=== PATIENT | male | born 1930 | race Caucasian/White ===

== ENCOUNTER → 2017-11-11 | Outpatient (CLI) | payer MEDICARE, OTHER ==
[~2017-11-11] MED LIST: FINA5TAB4 PO; FLUD0.1T PO; MULT1TAB13 PO; SILO4CAP PO; TIMO1DRO LEFTEYE; VITAMIN C PO; VITAMIN D PO
[2017-11-11 11:01] LABS: MICROSCOPIC NOT IND
== END | disposition home or self-care (01) ==
LOC: STAR 10:03
PROVIDERS: ATTEND Urology
DX: Z01.818 Encounter for other preprocedural examination (principal); N40.1 Benign prostatic hyperplasia with lower urinary tract symptoms
CPT/HCPCS: 71046; 81003; 87086; 93005

== ENCOUNTER 2017-11-16 11:34 | Day surgery (SDC) | payer MEDICARE, OTHER ==
[2017-11-11 10:54] VITALS: BP 165/104
[~2017-11-16] VITALS: Ht 180.3 cm; Wt 97.5 kg
[2017-11-16] MEDS ORDERED: LACTATED RINGERS 1,000 ML IV SCH (12:40)
[2017-11-16] MEDS ORDERED: MIDAZOLAM 1 MG/ML, 2ML ONE (13:09)
[2017-11-16] MEDS ORDERED: FENTANYL PF 100 MCG/2ML ONE (13:09)
[2017-11-16] MEDS ORDERED: LIDOCAINE-MPF 2% ,5ML ONE (13:10)
[2017-11-16] MEDS ORDERED: PROPOFOL 10 MG/ML, 20ML ONE (13:10)
[2017-11-16] MEDS ORDERED: CIPROFLOXACIN/PMX 400MG/200ML 200 ML ONE (13:11)
[2017-11-16] MEDS ORDERED: ONDANSETRON ODT 8 MG ONE ×2 (13:38)
[2017-11-16] MEDS ORDERED: DEXAMETHASONE 4 MG/ML, 1ML ONE (14:13)
[2017-11-16] MEDS ORDERED: LABETALOL 5MG/ML, 20ML IV PRN (14:30)
[2017-11-16] MEDS ORDERED: FENTANYL PF 100 MCG/2ML IV PRN (14:30)
[2017-11-16] MEDS ORDERED: PROMETHAZINE 25 MG/ML, 1ML IV PRN (14:30)
[2017-11-16] MEDS ORDERED: hydrALAzine 20 MG/ML, 1ML IV PRN (14:30)
[2017-11-16] MEDS ORDERED: HALOPERIDOL 5 MG/ML IV PRN (14:30)
[2017-11-16] MEDS ORDERED: ACETAMINOPHEN 325 MG TABLET PO PRN (14:30)
[2017-11-16] MEDS ORDERED: OXYcodone 5 MG/5 ML ORAL.SOL UDC PO PRN (14:30)
[2017-11-16] MEDS ORDERED: MEPERIDINE/PF 25MG/0.5ML IVPush PRN (14:30)
[2017-11-16] MEDS ORDERED: HYDROmorphone 1 MG/ML, 1ML IV PRN (14:30)
[2017-11-16] MEDS ORDERED: OXYcodone/APAP 5/325MG TABLET PO PRN (15:00)
[2017-11-16] MEDS ORDERED: ONDANSETRON 2MG/ML, 2ML IV PRN (15:00)
== END 2017-11-16 16:35 ==
LOC: OUT 11:34
PROVIDERS: ATTEND Urology
DX: N40.0 Benign prostatic hyperplasia without lower urinary tract symptoms (principal); I10 Essential (primary) hypertension
CPT/HCPCS: 52648; J0744; J1100; J2250; J2704; J3010; J3490; J7120; Q0162

== ENCOUNTER 2018-10-14 08:56 | Inpatient (IN) | payer MEDICARE ==
[~2018-10-14] VITALS: Ht 181.6 cm; Wt 101.8 kg
[~2018-10-14 08:56] MED LIST changes: +APIX2.5T PO; +ATOR40TA78 PO; +FURO40TA6 PO; +MIDO2.5T PO
[2018-10-14] MEDS ORDERED: METO5TAB5 PO (09:53)
[2018-10-14] MEDS ORDERED: CHOL100011 PO (09:57)
[2018-10-14 10:00] VITALS: BP 116/87
[2018-10-14] MEDS ORDERED: SODIUM CHLORIDE 0.9% 1,000 ML IV ONE (10:00)
[2018-10-14 10:13] LABS: ANION GAP 8 mmol/L (5-15); CALCIUM 8.7 mg/dL (8.5-10.1); CHLORIDE 105 mmol/L (98-107); CREATININE 2.68 mg/dL (0.7-1.3)
[2018-10-14] MEDS ORDERED: PROPOFOL 10 MG/ML, 20ML ONE (10:33)
[2018-10-14] MEDS ORDERED: NITROGLYCERIN 0.4 MG BOTTLE (25 TABS) SL PRN (16:00)
[2018-10-14] MEDS ORDERED: ONDANSETRON 2MG/ML, 2ML IVP PRN (16:00)
[2018-10-14] MEDS ORDERED: ACETAMINOPHEN 650 MG/20.3 ML UDC PO PRN (16:00)
[2018-10-14] MEDS ORDERED: BISACODYL 5 MG EC TABLET PO PRN (16:00)
[2018-10-14] MEDS ORDERED: NITROGLYCERIN 0.4 MG/SPRAY SL PRN (16:00)
[2018-10-14 19:22] VITALS: BP 114/73
[2018-10-15 01:43] VITALS: BP 105/67
[2018-10-15 05:48] LABS: ANION GAP 8 mmol/L (5-15); CALCIUM 8.5 mg/dL (8.5-10.1); CHLORIDE 105 mmol/L (98-107); CREATININE 3.06 mg/dL (0.7-1.3)
[2018-10-15] MEDS ORDERED: SODIUM CHLORIDE 0.9% 1,000 ML IV SCH (06:58)
[2018-10-15] MEDS ORDERED: CEFAZOLIN PMX 1GM/50ML 50 ML IVPB ONE (07:00)
[2018-10-15 08:45] VITALS: BP 108/72
[2018-10-15] MEDS ORDERED: MIDAZOLAM 1 MG/ML, 5ML ONE (13:58)
[2018-10-15] MEDS ORDERED: CEFAZOLIN 1,000 MG ONE (13:58)
[2018-10-15] MEDS ORDERED: LIDOCAINE 2%, 20ML ONE (13:58)
[2018-10-15] MEDS ORDERED: CEFAZOLIN PMX 1GM/50ML 50 ML ONE (13:58)
[2018-10-15] MEDS ORDERED: FENTANYL PF 100 MCG/2ML ONE (13:58)
[2018-10-15] MEDS ORDERED: LIDOCAINE 1%, 20ML ONE (15:26)
[2018-10-15 16:15] VITALS: BP 119/74
[2018-10-15] MEDS ORDERED: HOLD MEDICATION MC PRN (16:30)
[2018-10-15 19:38] VITALS: BP 113/76
[2018-10-15] MEDS: SODIUM CHLORIDE FLUSH 10ML SYR IVF SCH (22:53)
[2018-10-15] MEDS: CEFAZOLIN PMX 1GM/50ML 50 ML IVPB SCH (22:53)
[2018-10-15] MEDS ORDERED: ACETAMINOPHEN 325 MG TABLET PO PRN (23:00)
[2018-10-16 00:37] VITALS: BP 104/64
[2018-10-16 05:01] LABS: BASOPHILS # (AUTO) 0.06 x10^3/uL (0-0.1); BASOPHILS % (AUTO) 1 % (0-1); EOSINOPHILS # (AUTO) 0.41 x10^3/uL (0-0.4); EOSINOPHILS % (AUTO) 5 % (1-7); LYMPHOCYTES # (AUTO) 1.61 x10^3/uL (1-3.4); LYMPHOCYTES % (AUTO) 18 % (22-44); MD NO; MEAN CORPUSCULAR HEMOGLOBIN 32.2 pg (27.5-34.5); MEAN CORPUSCULAR HGB CONC 32.7 g/dL (33.2-36.2); MEAN CORPUSCULAR VOLUME 98.3 fL (81-97); MEAN PLATELET VOLUME 7.8 fL (7.4-10.4); MONOCYTES # (AUTO) 0.87 x10^3/uL (0.2-0.8); MONOCYTES % (AUTO) 10 % (2-9); NEUTROPHILS # (AUTO) 6.05 x10^3/uL (1.8-6.8); NEUTROPHILS % (AUTO) 67 % (42-75); PLATELET COUNT 229 x10^3/uL (130-400); RED BLOOD COUNT 2.94 x10^6/uL (4.38-5.82); RED CELL DISTRIBUTION WIDTH 12.6 % (9.4-14.8)
[2018-10-16 05:12] LABS: ALBUMIN 3.3 g/dL (3.4-5.0); ANION GAP 9 mmol/L (5-15); CALCIUM 8.5 mg/dL (8.5-10.1); CHLORIDE 107 mmol/L (98-107)
[2018-10-16 05:16] LABS: ALANINE AMINOTRANSFERASE 13 U/L (12-78); ALKALINE PHOSPHATASE 70 U/L (45-117); CREATININE 3.28 mg/dL (0.7-1.3); TOTAL PROTEIN 6.8 g/dL (6.4-8.2)
[2018-10-16] MEDS: CEFAZOLIN PMX 1GM/50ML 50 ML IVPB SCH (06:26)
[2018-10-16] MEDS ORDERED: SODIUM CHLORIDE 0.9% 500 ML IV SCH (06:58)
[2018-10-16 07:33] VITALS: BP 111/76
[2018-10-16] MEDS: SODIUM CHLORIDE FLUSH 10ML SYR IVF SCH ×2 (08:20→20:31)
[2018-10-16] MEDS ORDERED: LACTATED RINGERS 1,000 ML IV SCH (08:30)
[2018-10-16 08:34] LABS: MICROSCOPIC AUTO
[2018-10-16 08:38] LABS: CULTURE INDICATED? YES
[2018-10-16 13:30] VITALS: BP 136/80
[2018-10-16 19:07] VITALS: BP 103/67
[2018-10-16] MEDS: APIXABAN 2.5 MG TABLET PO SCH (20:30)
[2018-10-17 01:22] VITALS: BP 102/67
[2018-10-17 04:28] LABS: ANION GAP 9 mmol/L (5-15); CALCIUM 8.4 mg/dL (8.5-10.1); CHLORIDE 105 mmol/L (98-107); CREATININE 3.09 mg/dL (0.7-1.3)
[2018-10-17 07:21] VITALS: BP 110/71
[2018-10-17] MEDS: SODIUM CHLORIDE FLUSH 10ML SYR IVF SCH (09:00)
[2018-10-17] MEDS: APIXABAN 2.5 MG TABLET PO SCH (09:07)
[2018-10-17] MEDS ORDERED: BISA5TAB5 PO (09:30)
[2018-10-17] MEDS ORDERED: APIX2.5T PO (09:30)
== END 2018-10-17 12:40 | disposition home or self-care (01) | DRG 242 ==
LOC: CACL 08:56 → 5SO 15:04 → CACL 15:42
PROVIDERS: ADMIT Internal Medicine Cardiovascular Disease; ATTEND Internal Medicine Cardiovascular Disease
PROC: B246ZZ4 Ultrasonography of Right and Left Heart, Transesophageal (ICD-10-PCS; 2018-10-14)
PROC: 5A2204Z Restoration of Cardiac Rhythm, Single (ICD-10-PCS; principal; 2018-10-14 11:30)
PROC: 0JH604Z Insertion of Pacemaker, Single Chamber into Chest Subcutaneous Tissue and Fascia, Open Approach (ICD-10-PCS; 2018-10-15)
PROC: 02HK3JZ Insertion of Pacemaker Lead into Right Ventricle, Percutaneous Approach (ICD-10-PCS; 2018-10-15)
DX: I48.91 Unspecified atrial fibrillation (principal); N17.0 Acute kidney failure with tubular necrosis; D68.59 Other primary thrombophilia; I31.3 Pericardial effusion (noninflammatory); D64.9 Anemia, unspecified; E78.5 Hyperlipidemia, unspecified; N18.3 Chronic kidney disease, stage 3 (moderate); I08.1 Rheumatic disorders of both mitral and tricuspid valves; Z87.891 Personal history of nicotine dependence; Z88.8 Allergy status to other drugs, medicaments and biological substances
CPT/HCPCS: 33207; 36415; 71045; 76770; 80048; 80053; 81001; 82570; 84300; 85025; 87086; 92960; 93005; 93312; 93321; 93325; 99156; 99157; C1779; C1786; C1892; G0378; J0690; J2250; J2704; J3010; J7030; J7120

== ENCOUNTER → 2018-10-20 | Outpatient (CLI) | payer MEDICARE ==
[~2018-10-20] MED LIST changes: +BISA5TAB5 PO; +CHOL100011 PO; +METO5TAB5 PO
== END | disposition home or self-care (01) ==
LOC: RAD 09:04
PROVIDERS: ATTEND Internal Medicine
DX: R18.8 Other ascites (principal); I50.9 Heart failure, unspecified; R10.10 Upper abdominal pain, unspecified
CPT/HCPCS: 76700